=== PATIENT | female | born 1940 | race Caucasian/White ===

== ENCOUNTER → 2017-01-17 | Outpatient (CLI) | payer MEDICARE, BC ==
[~2017-01-17] MED LIST: ALPR1TAB2 PO; CARB1TAB25 PO; CLON0.1T PO; DONE10TA14 PO; DOXE150C PO; GABA-826 PO; HYDR4TAB48 PO; LEVO750T26 PO; LISI-167 PO; OSEL75CA PO; RASA1TAB2 PO; SOLI10TA2 PO
== END | disposition home or self-care (01) ==
LOC: CVU 13:40
PROVIDERS: ATTEND Internal Medicine
DX: I73.9 Peripheral vascular disease, unspecified (principal)
CPT/HCPCS: 93922

== ENCOUNTER 2017-02-21 04:37 | Inpatient (IN) | payer MEDICARE, BC ==
[~2017-02-21] VITALS: Ht 170.2 cm; Wt 84.5 kg
[2017-02-21 05:53] LABS: HEMATOCRIT 50.5 % (34.6-47.8); HEMOGLOBIN 16.7 g/dL (11.7-16.4)
[2017-02-21 05:58] LABS: BLOOD UREA NITROGEN 32 mg/dL (7-18)
[2017-02-21] MEDS ORDERED: SODIUM CHLORIDE FLUSH 10ML SYR IVF ONE (08:00)
[2017-02-21] MEDS ORDERED: CEFTRIAXONE 250 MG IV ONE (08:00)
[2017-02-21] MEDS ORDERED: SODIUM CHLORIDE 0.9% 1,000ML IVBOLUS ONE (08:00)
[2017-02-21] MEDS ORDERED: CEFTRIAXONE 250 MG ONE (08:11)
[2017-02-21] MEDS ORDERED: SODIUM CHLORIDE 0.9% 1,000 ML IV ONE (09:00)
[2017-02-21] MEDS ORDERED: SODIUM CHLORIDE FLUSH 10ML SYR IVF PRN (09:30)
[2017-02-21 10:00] VITALS: BP 143/85
[2017-02-21] MEDS ORDERED: ONDANSETRON 2MG/ML, 2ML IVPush PRN (11:00)
[2017-02-21] MEDS: DONEPEZIL 10 MG TABLET PO SCH (11:00)
[2017-02-21] MEDS: CARBIDOPA/LEVODOPA 25 MG/250 MG TABLET PO SCH ×3 (11:00→21:33)
[2017-02-21] MEDS ORDERED: ACETAMINOPHEN 325 MG TABLET PO PRN (11:00)
[2017-02-21] MEDS: LACTATED RINGERS 1,000 ML IV SCH ×2 (11:16→17:54)
[2017-02-21 12:21] VITALS: BP 149/83
[2017-02-21 18:26] VITALS: BP 145/84
[2017-02-21] MEDS: GABAPENTIN 100 MG CAPSULE PO SCH (21:32)
[2017-02-21] MEDS: ALPRazolam 1MG TABLET PO PRN (21:33)
[2017-02-22] MEDS: LACTATED RINGERS 1,000 ML IV SCH ×3 (00:35→18:41)
[2017-02-22 01:55] VITALS: BP 161/91
[2017-02-22 05:43] LABS: BLOOD UREA NITROGEN 22 mg/dL (7-18)
[2017-02-22 07:25] VITALS: BP 163/91
[2017-02-22] MEDS: CEFTRIAXONE 2,000 MG in DEXTROSE 5% 50 ML IV SCH (10:06)
[2017-02-22] MEDS: CARBIDOPA/LEVODOPA 25 MG/250 MG TABLET PO SCH ×3 (10:06→21:52)
[2017-02-22] MEDS: GABAPENTIN 100 MG CAPSULE PO SCH ×2 (10:06→21:52)
[2017-02-22] MEDS: DONEPEZIL 10 MG TABLET PO SCH (10:07)
[2017-02-22] MEDS: HYDROmorphone 4MG TABLET PO PRN ×2 (12:01→22:08)
[2017-02-22] MEDS: ALPRazolam 1MG TABLET PO PRN (14:30)
[2017-02-22 16:01] VITALS: BP 176/101
[2017-02-22] MEDS ORDERED: ACETAMINOPHEN 325 MG TABLET PO PRN (18:30)
[2017-02-22 19:47] VITALS: BP 158/85
[2017-02-22] MEDS: DOXEPIN 25 MG CAPSULE PO SCH (21:53)
[2017-02-23 01:19] VITALS: BP 137/84
[2017-02-23] MEDS: LACTATED RINGERS 1,000 ML IV SCH (03:06)
[2017-02-23] MEDS: ALPRazolam 1MG TABLET PO PRN ×2 (04:29→18:11)
[2017-02-23 06:59] LABS: BLOOD UREA NITROGEN 13 mg/dL (7-18)
[2017-02-23 07:52] VITALS: BP 151/85
[2017-02-23] MEDS: CEFTRIAXONE 2,000 MG in DEXTROSE 5% 50 ML IV SCH (08:44)
[2017-02-23] MEDS: DONEPEZIL 10 MG TABLET PO SCH (08:45)
[2017-02-23] MEDS: CARBIDOPA/LEVODOPA 25 MG/250 MG TABLET PO SCH ×3 (08:45→22:29)
[2017-02-23] MEDS: GABAPENTIN 100 MG CAPSULE PO SCH ×2 (08:46→22:29)
[2017-02-23] MEDS: HYDROmorphone 4MG TABLET PO PRN ×2 (09:00→22:29)
[2017-02-23 10:42] VITALS: BP 187/89
[2017-02-23] MEDS: ONDANSETRON 2MG/ML, 2ML IVPush PRN (10:43)
[2017-02-23] MEDS: LISINOPRIL 10 MG TABLET PO SCH ×3 (10:44→22:29)
[2017-02-23 12:59] VITALS: BP 149/79
[2017-02-23] MEDS ORDERED: PHARMACY MAY ADJ FOR RENAL FX MC PRN (15:30)
[2017-02-23] MEDS: ERTAPENEM 1 GM in SODIUM CHLORIDE 0.9% 50 ML IV SCH (16:43)
[2017-02-23 18:31] VITALS: BP 157/104
[2017-02-23] MEDS: DOXEPIN 25 MG CAPSULE PO SCH (22:29)
[2017-02-24 01:41] VITALS: BP 148/91
[2017-02-24 08:12] VITALS: BP 167/99
[2017-02-24] MEDS: CARBIDOPA/LEVODOPA 25 MG/250 MG TABLET PO SCH ×3 (08:39→22:29)
[2017-02-24] MEDS: DONEPEZIL 10 MG TABLET PO SCH (08:40)
[2017-02-24] MEDS: LISINOPRIL 10 MG TABLET PO SCH ×2 (08:40→21:16)
[2017-02-24] MEDS: GABAPENTIN 100 MG CAPSULE PO SCH ×2 (08:40→22:29)
[2017-02-24] MEDS: ALPRazolam 1MG TABLET PO PRN ×2 (08:40→22:29)
[2017-02-24] MEDS: ONDANSETRON 2MG/ML, 2ML IVPush PRN (08:43)
[2017-02-24] MEDS: HYDROmorphone 4MG TABLET PO PRN (13:58)
[2017-02-24 14:00] VITALS: BP 165/98
[2017-02-24] MEDS: ERTAPENEM 1 GM in SODIUM CHLORIDE 0.9% 50 ML IV SCH (15:49)
[2017-02-24] MEDS: LACTOBACILLUS CHEW TABLET PO SCH (18:37)
[2017-02-24 20:53] VITALS: BP_SYST 117; BP_SYST 186; BP_DIAS 116
[2017-02-24] MEDS ORDERED: hydrALAzine 20 MG/ML, 1ML IV PRN (21:30)
[2017-02-24 21:44] VITALS: BP 186/117
[2017-02-24 22:21] VITALS: BP 146/84
[2017-02-24] MEDS: DOXEPIN 25 MG CAPSULE PO SCH (22:29)
[2017-02-25] VITALS (7 sets, daily range): BP systolic 116–187; BP diastolic 76–102
[2017-02-25] MEDS: HYDROmorphone 4MG TABLET PO PRN ×3 (04:16→21:48)
[2017-02-25] MEDS: CARBIDOPA/LEVODOPA 25 MG/250 MG TABLET PO SCH ×3 (09:41→21:48)
[2017-02-25] MEDS: DONEPEZIL 10 MG TABLET PO SCH (09:42)
[2017-02-25] MEDS: LACTOBACILLUS CHEW TABLET PO SCH ×3 (09:42→16:56)
[2017-02-25] MEDS: GABAPENTIN 100 MG CAPSULE PO SCH ×2 (09:42→21:49)
[2017-02-25] MEDS: LISINOPRIL 10 MG TABLET PO SCH ×2 (10:19→21:49)
[2017-02-25] MEDS: ALPRazolam 1MG TABLET PO PRN (13:47)
[2017-02-25] MEDS: ERTAPENEM 1 GM in SODIUM CHLORIDE 0.9% 50 ML IV SCH (16:56)
[2017-02-25] MEDS: DOXEPIN 25 MG CAPSULE PO SCH (21:49)
[2017-02-25] MEDS: HEPARIN 5,000 UNITS/ML, 1ML SQ SCH (21:49)
[2017-02-26 02:05] VITALS: BP 148/84
[2017-02-26] MEDS: ALPRazolam 1MG TABLET PO PRN (02:50)
[2017-02-26] MEDS: HEPARIN 5,000 UNITS/ML, 1ML SQ SCH ×3 (04:29→21:49)
[2017-02-26 05:48] LABS: HEMATOCRIT 44.8 % (34.6-47.8); HEMOGLOBIN 14.8 g/dL (11.7-16.4); WHITE BLOOD COUNT 4.1 x10^3/uL (3.4-10)
[2017-02-26 06:35] LABS: ASPARTATE AMINO TRANSFERASE 11 U/L (15-37); BLOOD UREA NITROGEN 18 mg/dL (7-18)
[2017-02-26 07:51] VITALS: BP_SYST 165; BP_SYST 166; BP_DIAS 100; BP_DIAS 99
[2017-02-26] MEDS: GABAPENTIN 100 MG CAPSULE PO SCH ×2 (08:43→21:49)
[2017-02-26] MEDS: LISINOPRIL 10 MG TABLET PO SCH (08:43)
[2017-02-26] MEDS: LACTOBACILLUS CHEW TABLET PO SCH ×3 (08:43→16:59)
[2017-02-26] MEDS: DONEPEZIL 10 MG TABLET PO SCH (08:43)
[2017-02-26] MEDS: CARBIDOPA/LEVODOPA 25 MG/250 MG TABLET PO SCH ×3 (08:43→21:49)
[2017-02-26 12:50] VITALS: BP 135/89
[2017-02-26] MEDS ORDERED: ERGOCALCIFEROL 50,000 UNIT CAPSULE PO SCH (16:30)
[2017-02-26] MEDS: ERTAPENEM 1 GM in SODIUM CHLORIDE 0.9% 50 ML IV SCH (16:59)
[2017-02-26] MEDS: CARVEDILOL 6.25 MG TABLET PO SCH (17:30)
[2017-02-26] MEDS: SODIUM CHLORIDE 0.9% 1,000 ML IV SCH (17:30)
[2017-02-26 19:05] VITALS: BP 177/83
[2017-02-26 20:49] LABS: PATH.CAST-FLAG NOT PRESENT; SPERM-FLAG NOT PRESENT; SRC-FLAG NOT PRESENT; XTAL-FLAG NOT PRESENT; YLC-FLAG NOT PRESENT
[2017-02-26] MEDS: HYDROmorphone 4MG TABLET PO PRN (22:36)
[2017-02-26] MEDS: DOXEPIN 25 MG CAPSULE PO SCH (22:37)
[2017-02-27 02:29] VITALS: BP 134/76
[2017-02-27] MEDS: SODIUM CHLORIDE 0.9% 1,000 ML IV SCH (02:40)
[2017-02-27] MEDS: ALPRazolam 1MG TABLET PO PRN ×2 (02:40→22:34)
[2017-02-27] MEDS: CARVEDILOL 6.25 MG TABLET PO SCH ×2 (05:55→17:34)
[2017-02-27] MEDS: HEPARIN 5,000 UNITS/ML, 1ML SQ SCH ×3 (05:56→22:34)
[2017-02-27 07:44] VITALS: BP 154/88
[2017-02-27 08:05] LABS: BLOOD UREA NITROGEN 18 mg/dL (7-18)
[2017-02-27] MEDS: DONEPEZIL 10 MG TABLET PO SCH (09:16)
[2017-02-27] MEDS: CARBIDOPA/LEVODOPA 25 MG/250 MG TABLET PO SCH ×3 (09:16→22:34)
[2017-02-27] MEDS: LACTOBACILLUS CHEW TABLET PO SCH ×3 (09:16→17:34)
[2017-02-27] MEDS: HYDROmorphone 4MG TABLET PO PRN ×2 (09:16→22:34)
[2017-02-27] MEDS: GABAPENTIN 100 MG CAPSULE PO SCH ×2 (09:16→22:33)
[2017-02-27] MEDS: LISINOPRIL 20 MG TABLET PO SCH (09:16)
[2017-02-27] MEDS: MULTIVITAMIN 1 TABLET PO SCH (09:16)
[2017-02-27 13:33] VITALS: BP 149/83
[2017-02-27] MEDS: ERTAPENEM 1 GM in SODIUM CHLORIDE 0.9% 50 ML IV SCH (17:34)
[2017-02-27 20:00] VITALS: BP 178/95
[2017-02-27] MEDS: DOXEPIN 25 MG CAPSULE PO SCH (22:34)
[2017-02-27] MEDS: NYSTATIN TOPICAL POWDER 15GM TP SCH (22:35)
[2017-02-28 02:43] VITALS: BP 150/84
[2017-02-28] MEDS: CARVEDILOL 6.25 MG TABLET PO SCH ×2 (06:24→17:12)
[2017-02-28] MEDS: HEPARIN 5,000 UNITS/ML, 1ML SQ SCH ×3 (06:25→21:48)
[2017-02-28 07:18] VITALS: BP 143/90
[2017-02-28] MEDS: MULTIVITAMIN 1 TABLET PO SCH (08:19)
[2017-02-28] MEDS: HYDROmorphone 4MG TABLET PO PRN ×3 (08:19→21:47)
[2017-02-28] MEDS: LISINOPRIL 20 MG TABLET PO SCH (08:19)
[2017-02-28] MEDS: CARBIDOPA/LEVODOPA 25 MG/250 MG TABLET PO SCH ×3 (08:19→21:48)
[2017-02-28] MEDS: DONEPEZIL 10 MG TABLET PO SCH (08:19)
[2017-02-28] MEDS: GABAPENTIN 100 MG CAPSULE PO SCH ×2 (08:19→21:47)
[2017-02-28] MEDS: LACTOBACILLUS CHEW TABLET PO SCH ×3 (08:19→17:12)
[2017-02-28] MEDS: NYSTATIN TOPICAL POWDER 15GM TP SCH ×3 (08:21→21:00)
[2017-02-28 14:32] VITALS: BP 150/78
[2017-02-28] MEDS: ALPRazolam 1MG TABLET PO PRN (14:37)
[2017-02-28] MEDS: ERTAPENEM 1 GM in SODIUM CHLORIDE 0.9% 50 ML IV SCH (17:12)
[2017-02-28 18:32] VITALS: BP 161/101
[2017-02-28 19:57] VITALS: BP 147/85
[2017-02-28] MEDS: DOXEPIN 25 MG CAPSULE PO SCH (21:47)
[2017-03-01 01:50] VITALS: BP 150/80
[2017-03-01] MEDS: HEPARIN 5,000 UNITS/ML, 1ML SQ SCH ×3 (05:52→22:11)
[2017-03-01 05:56] VITALS: BP 135/81
[2017-03-01] MEDS: CARVEDILOL 6.25 MG TABLET PO SCH ×2 (06:01→17:56)
[2017-03-01 07:14] VITALS: BP 171/97
[2017-03-01] MEDS: LACTOBACILLUS CHEW TABLET PO SCH ×3 (08:55→17:56)
[2017-03-01] MEDS: NYSTATIN TOPICAL POWDER 15GM TP SCH ×3 (08:56→21:00)
[2017-03-01] MEDS: LISINOPRIL 20 MG TABLET PO SCH (08:56)
[2017-03-01] MEDS: CARBIDOPA/LEVODOPA 25 MG/250 MG TABLET PO SCH ×3 (08:56→22:11)
[2017-03-01] MEDS: GABAPENTIN 100 MG CAPSULE PO SCH ×2 (08:56→22:11)
[2017-03-01] MEDS: DONEPEZIL 10 MG TABLET PO SCH (08:56)
[2017-03-01] MEDS: MULTIVITAMIN 1 TABLET PO SCH (08:56)
[2017-03-01] MEDS: ALPRazolam 1MG TABLET PO PRN (09:04)
[2017-03-01] MEDS: HYDROmorphone 4MG TABLET PO PRN ×3 (09:04→22:25)
[2017-03-01 13:38] VITALS: BP 176/86
[2017-03-01] MEDS ORDERED: PHARMACOKINETIC CONSULTATION MC ONE (15:00)
[2017-03-01] MEDS ORDERED: VANCOMYCIN PER PHARMACY MC PRN (15:00)
[2017-03-01] MEDS ORDERED: PHARMACOKINETIC MONITORING MC PRN (15:00)
[2017-03-01] MEDS ORDERED: VANCOMYCIN PMX 1GM/200ML 200 ML IV ONE (15:00)
[2017-03-01] MEDS: VANCOMYCIN 1,600 MG in SODIUM CHLORIDE 0.9% 250 ML IV SCH (15:59)
[2017-03-01] MEDS ORDERED: NITROFURANTOIN 50 MG CAPSULE PO SCH (16:00)
[2017-03-01 17:57] VITALS: BP 161/88
[2017-03-01] MEDS: ERTAPENEM 1 GM in SODIUM CHLORIDE 0.9% 50 ML IV SCH (18:22)
[2017-03-01 18:31] VITALS: BP 157/77
[2017-03-01] MEDS: DOXEPIN 25 MG CAPSULE PO SCH (22:11)
[2017-03-02 02:16] VITALS: BP 148/82
[2017-03-02] MEDS: HEPARIN 5,000 UNITS/ML, 1ML SQ SCH ×3 (05:38→22:00)
[2017-03-02] MEDS: CARVEDILOL 6.25 MG TABLET PO SCH ×2 (05:38→17:02)
[2017-03-02 06:06] LABS: BLOOD UREA NITROGEN 20 mg/dL (7-18)
[2017-03-02 07:47] VITALS: BP 146/80
[2017-03-02] MEDS: NYSTATIN TOPICAL POWDER 15GM TP SCH ×3 (08:41→21:00)
[2017-03-02] MEDS: GABAPENTIN 100 MG CAPSULE PO SCH ×2 (08:43→22:37)
[2017-03-02] MEDS: MULTIVITAMIN 1 TABLET PO SCH (08:44)
[2017-03-02] MEDS: DONEPEZIL 10 MG TABLET PO SCH (08:44)
[2017-03-02] MEDS: LACTOBACILLUS CHEW TABLET PO SCH ×3 (08:44→17:02)
[2017-03-02] MEDS: LISINOPRIL 20 MG TABLET PO SCH (08:45)
[2017-03-02] MEDS: CARBIDOPA/LEVODOPA 25 MG/250 MG TABLET PO SCH ×3 (08:48→22:38)
[2017-03-02] MEDS: HYDROmorphone 4MG TABLET PO PRN ×2 (08:50→17:02)
[2017-03-02 14:12] VITALS: BP 161/83
[2017-03-02] MEDS: ALPRazolam 1MG TABLET PO PRN ×2 (14:27→22:45)
[2017-03-02] MEDS: VANCOMYCIN 1,600 MG in SODIUM CHLORIDE 0.9% 250 ML IV SCH (17:02)
[2017-03-02 19:39] VITALS: BP 160/90
[2017-03-02] MEDS: ERTAPENEM 1 GM in SODIUM CHLORIDE 0.9% 50 ML IV SCH (20:28)
[2017-03-02] MEDS: DOXEPIN 25 MG CAPSULE PO SCH (22:38)
[2017-03-03 01:10] VITALS: BP 152/90
[2017-03-03] MEDS: HYDROmorphone 4MG TABLET PO PRN (02:38)
[2017-03-03 04:42] LABS: HEMOGLOBIN 13.8 g/dL (11.7-16.4); WHITE BLOOD COUNT 3.8 x10^3/uL (3.4-10)
[2017-03-03 04:50] LABS: BLOOD UREA NITROGEN 17 mg/dL (7-18)
[2017-03-03] MEDS: HEPARIN 5,000 UNITS/ML, 1ML SQ SCH (05:57)
[2017-03-03] MEDS: CARVEDILOL 6.25 MG TABLET PO SCH (05:58)
[2017-03-03 07:19] VITALS: BP 151/76
[2017-03-03] MEDS: MULTIVITAMIN 1 TABLET PO SCH (09:35)
[2017-03-03] MEDS: LACTOBACILLUS CHEW TABLET PO SCH ×2 (09:37→12:00)
[2017-03-03] MEDS: CARBIDOPA/LEVODOPA 25 MG/250 MG TABLET PO SCH (09:37)
[2017-03-03] MEDS: LISINOPRIL 20 MG TABLET PO SCH (09:37)
[2017-03-03] MEDS: NYSTATIN TOPICAL POWDER 15GM TP SCH (09:38)
[2017-03-03] MEDS: GABAPENTIN 100 MG CAPSULE PO SCH (09:38)
[2017-03-03] MEDS: DONEPEZIL 10 MG TABLET PO SCH (09:38)
[2017-03-03] MEDS ORDERED: CARVEDILOL 6.25 MG TABLET PO SCH (10:30)
[2017-03-03] MEDS ORDERED: CARV6.2512 PO (10:40)
[2017-03-03] MEDS ORDERED: NITR100C PO (10:40)
[2017-03-03] MEDS ORDERED: LISI-170 PO (10:40)
[2017-03-03] MEDS ORDERED: MULT1TAB60 PO (10:40)
[2017-03-03] MEDS ORDERED: ERGO500017 PO (10:40)
[2017-03-03] MEDS ORDERED: NYST60PO TP (10:40)
[2017-03-03] MEDS ORDERED: ACID1TAB7 PO (10:44)
[2017-03-03] MEDS: VANCOMYCIN 1,600 MG in SODIUM CHLORIDE 0.9% 250 ML IV SCH (10:51)
[2017-03-03] MEDS: ERTAPENEM 1 GM in SODIUM CHLORIDE 0.9% 50 ML IV SCH (13:12)
== END 2017-03-03 14:16 | disposition home or self-care (01) | DRG 871 ==
LOC: ED 07:05 → EDIP 08:04 → 3NE 09:38
PROVIDERS: ADMIT Hospitalist; ATTEND Hospitalist
DX: A41.9 Sepsis, unspecified organism (principal); N17.0 Acute kidney failure with tubular necrosis; N12 Tubulo-interstitial nephritis, not specified as acute or chronic; N30.91 Cystitis, unspecified with hematuria; W01.0XXA Fall on same level from slipping, tripping and stumbling without subsequent striking against object, initial encounter; E55.9 Vitamin D deficiency, unspecified; F03.90 Unspecified dementia, unspecified severity, without behavioral disturbance, psychotic disturbance, mood disturbance, and anxiety; G20 Parkinson's disease; I12.9 Hypertensive chronic kidney disease with stage 1 through stage 4 chronic kidney disease, or unspecified chronic kidney disease; Z96.641 Presence of right artificial hip joint; M19.019 Primary osteoarthritis, unspecified shoulder; M79.7 Fibromyalgia; N18.9 Chronic kidney disease, unspecified; N32.81 Overactive bladder; R29.6 Repeated falls; S40.011A Contusion of right shoulder, initial encounter; Z16.19 Resistance to other specified beta lactam antibiotics; Z86.73 Personal history of transient ischemic attack (TIA), and cerebral infarction without residual deficits; Z90.49 Acquired absence of other specified parts of digestive tract; Z90.710 Acquired absence of both cervix and uterus; Y93.89 Activity, other specified; Y92.89 Other specified places as the place of occurrence of the external cause; Y99.8 Other external cause status
CPT/HCPCS: 36415; 71020; 74020; 80048; 80053; 81001; 82040; 82306; 82565; 82607; 83735; 84100; 84443; 84520; 85025; 87077; 87086; 87186; 87324; 93005; 96374; J0696; J1335; J1644; J2405; J3370; J0360; J7030; J7050; J7120

== ENCOUNTER → 2017-07-16 | Outpatient (CLI) | payer MEDICARE, BC ==
[~2017-07-16] MED LIST changes: +ACID1TAB7 PO; +CARV6.2512 PO; +ERGO500017 PO; +LISI-170 PO; +MULT1TAB60 PO; +NITR100C PO; +NYST60PO TP
== END | disposition home or self-care (01) ==
LOC: CVU 13:09
PROVIDERS: ATTEND Internal Medicine Cardiovascular Disease
DX: Z01.810 Encounter for preprocedural cardiovascular examination (principal); I65.23 Occlusion and stenosis of bilateral carotid arteries; I35.1 Nonrheumatic aortic (valve) insufficiency; I51.7 Cardiomegaly; Z86.73 Personal history of transient ischemic attack (TIA), and cerebral infarction without residual deficits; Z82.49 Family history of ischemic heart disease and other diseases of the circulatory system
CPT/HCPCS: 93306; 93880

== ENCOUNTER → 2017-07-17 | Outpatient (CLI) | payer MEDICARE, BC ==
[~2017-07-17] MED LIST changes: +REGADENOSON 0.4 MG/5 ML SYRINGE ONE
== END ==
LOC: RAD 11:38
PROVIDERS: ATTEND Internal Medicine Cardiovascular Disease
DX: Z01.810 Encounter for preprocedural cardiovascular examination (principal); G45.9 Transient cerebral ischemic attack, unspecified; Z82.49 Family history of ischemic heart disease and other diseases of the circulatory system
CPT/HCPCS: 78452; 93017; A9502; J2785